=== PATIENT | male | born 1995 | race Caucasian/White ===

== ENCOUNTER 2017-07-18 14:36 | Emergency (ER) | payer BC ==
--- OUTSIDE RECORDS SUMMARY | 2017-07-18 17:05 | XMS REPORT ---
:1995 External Reference #:[id number] Author Organization [facility] Address [address], [address] [place] [address] Phone [phone] Care Team Providers Name Role Phone Terry Carlin PA Care Team Information Esol Instructor Unavailable Terry Carlin PA Primary Care Physician Unavailable Payers Type Date Identification Numbers Payment Provider Subscriber Commercial Effective: Policy Number: [id number] BS [place] Ann Jaimes 2009 PayID: [id number] [address] [address] [place] [address] Problems Date Description Provider Status Onset: 06/30/2017 Ganglion cyst of left wrist Jorge Valladares MD,FACS Active Family History Date Family Member(s) Problem(s) Comments Father Diabetes Social History Type Date Description Comments Occupation Help Desk Assistant ETOH Use Rarely consumes alcohol Smoking Patient denies history of smoking Recreational Drug Use Denies Drug Use Daily Caffeine Does Not Consume Caffeine Allergies, Adverse Reactions, Alerts Date Description Reaction Status Severity Comments 06/29/2017 NKDA active Medications Medication Date Status Form Strength Qnty SIG Indications Ordering Provider No Active 06/29/2017 Active Unknown Medications Vital Signs Date Vital Result Comment 06/30/2017 BP Systolic 120 mmHg BP Diastolic 78 mmHg Height 69 inches 5'9" Weight 244.00 lb BMI (Body Mass Index) 36.0 kg/m2 BSA (Body Surface Area) 2.25 m2 [place] body weight in kilograms 73 Results Description No Information Procedures Date CPT Code Description Status 03/01/2007 75865 Tympanometry Completed 03/01/2007 94322 Audiometry, Comprehensive Completed Encounters Type Date Location Provider CPT E/M Dx Office Visit 03/01/2007 3:30p Operating Room Elias Ramírez M.D. [id number] 382.01 Office Visit 02/08/2007 1:00p Operating Room Elias Ramírez M.D. 46197 382.01 Plan of Care Future Appointment(s):07/02/2017 2:15 pm - [facility]EL[id number]/30/2017 - Jorge Valladares MD,[id number] Ganglion, left wristComments: ganglion cyst of the left wrist, relatively large, 3 cm, located anteriorly in close proximity to the flexor tendons and left radial artery. will refer to orthopedics/hand surgery for treatment. i recommended no heavy lifting in that arm till he is seen.
--- NOTE | 2017-07-18 17:16 | UC ---
Throat Pain/Nasal Howie HPI - HPI Summary HPI Summary: 22 y/o male presents to the urgent care c/o sore throat upon swallowing since yesterday. Pt reports he ate spicy food and after that he developed sore throat. Pain is mild 2/10 radiating on his RT ear at times. Pt denies fever, SERRA , SOB, chest pain, abdominal pain N/V/D. He took Advil 400mg PO last night to alleviate symptoms w/o any relief. - History of Current Complaint Stated Complaint: THROAT COMPLAINT Time Seen by Provider: 07/18/17 17:11 Hx Obtained From: Patient Onset/Duration: Gradual Onset - Allergies/Home Medications Allergies/Adverse Reactions: Allergies Allergy/AdvReac Type Severity Reaction Status Date / Time No Known Allergies Allergy Verified 07/18/17 17:14 Throat Pain/Nasal Course/Dx - Course Course Of Treatment: 22 y/o male presents to the urgent care c/o sore throat upon swallowing since yesterday. Pt reports he ate spicy food and after that he developed sore throat. Pain is mild 2/10 radiating on his RT ear at times. Pt denies fever, SERRA, SOB, chest pain, abdominal pain N/V/D. He took Advil 400mg PO last night to alleviate symptoms w/o any relief. Hx obtained. Pt with Rt otitis media and mild epigastric tenderness on examination. Possible GERD. Pt RX Amoxicillin PO and Omepraxole PO to alleviate symptoms. Educated on dietary modifications. Pt Advised to f/u with PCP for further management.Pt explained D/ C intructions. Pt understood and agreed with plan of care. - Differential Dx/Diagnosis Differential Diagnosis/HQI/PQRI: Laryngitis, Otitis Media, Pharyngitis, Sinusitis, URI, Other - GERD Provider Diagnoses: 1- Acute Rt otitis media. 2-GERD Discharge - Discharge Plan Condition: Stable Disposition: HOME Prescriptions: Amoxicillin PO (*) [Amoxicillin 875 MG (*)] 875 mg PO BID #20 tab Omeprazole CAP* [Prilosec CAP* 20 MG] 20 mg PO DAILY #30 cap. Patient Education Materials: Ear Infection (ED), Gastroesophageal Reflux Disease (ED) Referrals: [facility] [Outside] Elias Ramírez MD [Medical Doctor] - 3 Days Additional Instructions: 1- Please take the full course of the antibiotic to avoid resistance. 2-Please take Omeprazole PO as directed. Avoid spicy foot, tomato sauce or chocolates that can cause GI irritation 3-If symptoms do not improve or worsen please return to the urgent care or f/u with your PCP for further evaluation and treatment. 4- PLease F/u with your ENT Dr Ramírez for further treatment if not improvement of symptoms
[2017-07-18 17:22] VITALS: BP 119/75
== END 2017-07-18 17:45 | disposition home or self-care (01) ==
LOC: UCCORT 14:36
DX: H66.91 Otitis media, unspecified, right ear (principal); K21.9 Gastro-esophageal reflux disease without esophagitis
CPT/HCPCS: 99202; G0463

== ENCOUNTER 2017-11-01 11:07 | Emergency (ER) | payer BC ==
--- NOTE | 2017-11-01 13:05 | UC ---
Ear Complaint HPI - HPI Summary HPI Summary: pain in area of R ear and throat for about 3 days. hx chronic ear infections and this feels the same. subjective fever. - History of Current Complaint Hx Obtained From: Patient Onset/Duration: Gradual Onset Aggravating Factors: Nothing Alleviating Factors: Nothing Associated Signs/Symptoms: Negative: Discharge, Trauma to Ear <Mimi Zepeda - Last Filed: 11/01/17 13:00> <Sarah Breen - Last Filed: 11/01/17 20:24> - History of Current Complaint Stated Complaint: EAR PAIN Time Seen by Provider: 11/01/17 13:00 - Allergies/Home Medications Allergies/Adverse Reactions: Allergies Allergy/AdvReac Type Severity Reaction Status Date / Time No Known Allergies Allergy Verified 07/18/17 17:14 PMH/Surg Hx/FS Hx/Imm Hx - Additional Past Medical History Additional PMH: OM - Surgical History Surgical History: Yes Surgery Procedure, Year, and Place: T&A. EAR TUBE SETS X 5 - Family History Known Family History: Positive: Diabetes - Social History Occupation: Student Alcohol Use: None Substance Use Type: None Smoking Status (MU): Never Smoked Tobacco - Immunization History Vaccination Up to Date: Yes <Mimi Zepeda - Last Filed: 11/01/17 13:00> Review of Systems Constitutional: Negative Skin: Negative Eyes: Negative ENT: Sore Throat, Ear Ache Respiratory: Negative Cardiovascular: Negative Gastrointestinal: Negative Genitourinary: Negative Motor: Negative Neurovascular: Negative Musculoskeletal: Negative Neurological: Negative Psychological: Negative Is Patient Immunocompromised?: No All Other Systems Reviewed And Are Negative: Yes <Mimi Zepeda - Last Filed: 11/01/17 13:00> Physical Exam Triage Information Reviewed: Yes Appearance: Well-Appearing Vital Signs Reviewed: Yes Eyes: Positive: Conjunctiva Clear ENT: Positive: Pharynx normal, TMs normal - L, TM red - R. Negative: Nasal congestion, Nasal drainage Neck: Positive: Supple, Nontender, No Lymphadenopathy Respiratory: Positive: Lungs clear, Normal breath sounds Cardiovascular: Positive: RRR, No Murmur Abdomen Description: Positive: Nontender, No Organomegaly, Soft Bowel Sounds: Positive: Present Musculoskeletal: Positive: ROM Intact Neurological: Positive: Alert Psychological: Positive: Age Appropriate Behavior Skin Exam: Normal <Mimi Zepeda - Last Filed: 11/01/17 13:00> Vital Signs: Initial Vital Signs Temp 98.7 F 11/01/17 13:02 Pulse 78 11/01/17 13:02 Resp 18 11/01/17 13:02 BP 122/78 11/01/17 13:02 Pulse Ox 98 11/01/17 13:02 <Sarah Breen - Last Filed: 11/01/17 20:24> Ear Complaint Course/Dx - Course Course Of Treatment: R OM on exam - Differential Dx/Diagnosis Provider Diagnoses: R OM <Mimi Zepeda - Last Filed: 11/01/17 13:00> Discharge - Sign-Out/Discharge Documenting (check all that apply): Discharge/Admit/Transfer - Billing Disposition and Condition Condition: STABLE Disposition: HOME <Mimi Zepeda - Last Filed: 11/01/17 13:00> - Billing Disposition and Condition Condition: STABLE Disposition: HOME <Sarah Breen - Last Filed: 11/01/17 20:24> - Discharge Plan Condition: Stable Disposition: HOME Prescriptions: Amoxicillin PO (*) [Amoxicillin 875 MG (*)] 875 mg PO BID #20 tab Patient Education Materials: Ear Infection (ED) Referrals: Fernando Guzman MD [Primary Care Provider] - 7 Days Attestation Statement User Type: Provider - I was available for consult. This patient was seen by the PAULINE. The patient was not presented to, seen by, or examined by me. -Oni <Sarah Breen - Last Filed: 11/01/17 20:24>
[2017-11-01 13:11] VITALS: BP 122/78
== END 2017-11-01 13:10 | disposition home or self-care (01) ==
LOC: UCCORT 11:07
DX: H66.91 Otitis media, unspecified, right ear (principal)
CPT/HCPCS: 99212; G0463

== ENCOUNTER 2017-12-21 14:07 | Emergency (ER) | payer BC ==
--- NOTE | 2017-12-21 14:15 | UC ---
Ear Complaint HPI - HPI Summary HPI Summary: 22 yo male presents with left ear pain and drainage for the last 5 days. He tells me that 6 or 7 days [place] the [place] day developed left ear pain and drainage. He tells me that he has a history of chronic ear infections and has had tubes placed multiple times. Today also noticed his left eye was red and itchy. Denies fever, chills, sore throat, cough , or headache. - History of Current Complaint Stated Complaint: LEFT EAR Time Seen by Provider: 12/21/17 14:14 Hx Obtained From: Patient Onset/Duration: Gradual Onset Severity Initially: Mild Severity Currently: Moderate Pain Intensity: 5 Pain Scale Used: 0-10 Numeric - Allergies/Home Medications Allergies/Adverse Reactions: Allergies Allergy/AdvReac Type Severity Reaction Status Date / Time No Known Allergies Allergy Verified 12/21/17 14:18 Home Medications: Home Medications Citalopram TAB* [CeleXA TAB*] 10 mg PO DAILY 12/21/17 [History Confirmed ] traZODone TAB* [Desyrel TAB*] 50 mg PO BEDTIME 12/21/17 [History Confirmed 12/21] PMH/Surg Hx/FS Hx/Imm Hx - Additional Past Medical History Additional PMH: Chronic ear infections GI/ History: Gastroesophageal Reflux Psychological History: Anxiety - Surgical History Surgical History: Yes Surgery Procedure, Year, and Place: T&A. EAR TUBE SETS X 5 - Family History Known Family History: Positive: Diabetes - Social History Occupation: Student Lives: With Family Alcohol Use: None Substance Use Type: None Smoking Status (MU): Never Smoked Tobacco - Immunization History Vaccination Up to Date: Yes Review of Systems Constitutional: Negative Skin: Negative Eyes: Eye Redness ENT: Ear Ache Respiratory: Negative Cardiovascular: Negative Gastrointestinal: Negative Neurological: Negative Psychological: Negative All Other Systems Reviewed And Are Negative: Yes Physical Exam - Summary Physical Exam Summary: GENERAL: NAD. WDWN. No pain distress. SKIN: No rashes, sores, lesions, or open wounds. HEENT: Head: AT/NC Eyes: EOM intact. PERRLA. LEFT EYE: Mild scleral injection. Conjunctiva with mild erythema. No discharge. Right eye: WNL. Ears: Hearing grossly normal. LEFT EAR: Moderate canal edema with white purulent matter. Tragus TTP. Pinna tender with movement. Nose: Nasal mucosa pink and moist. NTTP maxillary and frontal sinus. Throat: Posterior oropharynx without exudates, erythema, or tonsillar enlargement. Uvula midline. NECK: Supple. Nontender. No lymphadenopathy. CHEST: CTAB. No r/r/w. No accessory muscle use. Breathing comfortably and in no distress. CV: RRR. Without m/r/g. Pulses intact. Brisk cap refill. NEURO: Alert. CN II-XII grossly intact. PSYCH: Age appropriate behavior. Triage Information Reviewed: Yes Vital Signs: Vital Signs: Temp Pulse Resp BP Pulse Ox 97.9 F 86 15 124/67 100 12/21/17 14:16 12/21/17 14:16 12/21/17 14:16 12/21/17 14:16 12/21/17 14:16 Ear Complaint Course/Dx - Course Course Of Treatment: Otitis externa left. Conjunctivitis left - Differential Dx/Diagnosis Provider Diagnoses: Otitis externa left. Conjunctivitis left Discharge - Sign-Out/Discharge Documenting (check all that apply): Discharge/Admit/Transfer - Discharge Plan Condition: Stable Disposition: HOME Prescriptions: Ciprofloxacin HCl [Ciprofloxacin 0.2% EAR DROPS] 1 drop LEFT EAR BID #1 bottle Polymyx/Trimethoprim OPTH* [Polytrim OPHTH*] 1 drop LEFT EYE QID #1 btl Patient Education Materials: Otitis Externa (ED) Referrals: Fernando Guzman MD [Primary Care Provider] - Additional Instructions: If you develop a fever, shortness of breath, chest pain, new or worsening symptoms - please call your PCP or go to the ED. - Billing Disposition and Condition Condition: STABLE Disposition: Home
[2017-12-21 14:21] VITALS: BP 124/67
== END 2017-12-21 14:33 | disposition home or self-care (01) ==
LOC: UCCORT 14:07
DX: H60.92 Unspecified otitis externa, left ear (principal); H10.9 Unspecified conjunctivitis; F41.9 Anxiety disorder, unspecified
CPT/HCPCS: 99212; G0463

== ENCOUNTER 2019-05-08 21:53 | Emergency (ER) | payer BC ==
[2019-05-08 22:02] VITALS: BP 124/88
--- NOTE | 2019-05-08 22:11 | UC ---
Throat Pain/Nasal Howie HPI - HPI Summary HPI Summary: C/O 20 minutes of throat pain 2/10 with swelling lower in the throat, but no difficulty swallowing. Recent URI symptoms with congestion and cough. C/O right ear pain as well. Has environmental allergies. - History of Current Complaint Chief Complaint: UCGeneralIllness Stated Complaint: THROAT COMPLAINT Time Seen by Provider: 05/08/19 22:06 Hx Obtained From: Patient Onset/Duration: Sudden Onset, Lasting Minutes - 20 Severity: Mild Pain Intensity: 2 Associated Signs & Symptoms: Positive: FB Sensation, Nasal Discharge. Negative : Dysphagia Related History: Seasonal Allergies - Allergies/Home Medications Allergies/Adverse Reactions: Allergies Allergy/AdvReac Type Severity Reaction Status Date / Time No Known Allergies Allergy Verified 05/08/19 22:02 Home Medications: Home Medications Bupropion XL* [Wellbutrin XL *] 300 mg PO DAILY 05/08/19 [History Confirmed ] Ibuprofen TAB* [Advil TAB*] 800 mg PO ONCE 05/08/19 [History Confirmed 05/08/19] PARoxetine HCL TAB* [Paxil TAB*] 30 mg PO DAILY 05/08/19 [History Confirmed ] PMH/Surg Hx/FS Hx/Imm Hx Previously Healthy: Yes - Surgical History Surgical History: Yes Surgery Procedure, Year, and Place: T&A. EAR TUBE SETS X 5 - Family History Known Family History: Positive: Diabetes - Social History Occupation: Employed Full-time Lives: With Family Alcohol Use: None Substance Use Type: Marijuana Substance Use Comment - Amount & Last Used: few times a day Smoking Status (MU): Never Smoked Tobacco - Immunization History Vaccination Up to Date: Yes Review of Systems All Other Systems Reviewed And Are Negative: Yes Constitutional: Positive: Fatigue ENT: Positive: Sore Throat, Ear Ache, Nasal Discharge Respiratory: Positive: Cough Physical Exam Triage Information Reviewed: Yes Appearance: No Pain Distress, Ill-Appearing - mild, Obese Vital Signs: Initial Vital Signs Temp 96.5 F 05/08/19 21:55 Pulse 119 05/08/19 21:55 Resp 18 05/08/19 21:55 BP 124/88 05/08/19 21:55 Pulse Ox 98 05/08/19 21:55 Vital Signs Reviewed: Yes Eyes: Positive: Conjunctiva Clear ENT: Positive: Pharynx normal - posterior lymphoid hyperplasia, Nasal congestion - with allergic changes., TMs normal - , TM bulging - AD, TM dull - AD, TM red - AD. Negative: Tonsillar swelling, Tonsillar exudate, Trismus, Muffled voice Diagnostics - Radiology No standard instances Radiology Interpretation Completed By: ED Physician Summary of Radiographic Findings: Normal epiglottis Throat Pain/Nasal Course/Dx - Differential Dx/Diagnosis Differential Diagnosis/HQI/PQRI: Epiglottitis, Otitis Media, Pharyngitis, Tonsillitis, URI Provider Diagnosis: Acute viral pharyngitis, Allergic rhinitis, Otitis media, right Discharge ED - Sign-Out/Discharge Documenting (check all that apply): Patient Departure All imaging exams completed and their final reports reviewed: No Studies - Discharge Plan Condition: Stable Disposition: HOME Prescriptions: Amoxicillin/Clavulanate TAB* [Augmentin TAB 875*] 875 mg PO BID #20 tab Fluticasone NASAL SPRAY 50MCG* [Flonase NASAL SPRAY 50MCG*] 2 spray BOTH NARES DAILY #1 btl Patient Education Materials: Pharyngitis (ED), Ear Infection (ED), Allergic Rhinitis (ED) Referrals: Nilsa Knott [Primary Care Provider] - 2 Weeks (recheck allergies/ ear infection) Additional Instructions: NEILMED SINUS RINSE: CHECK OUT AT [facility] Saline nasal wash helps with mucous, allergies and congestion. It can be used up to twice a day or only as needed. Use lukewarm tap water. It does not have to be sterilized or distilled water. Do 1/3 on each side and snort out of both nostrils. Repeat the process with 1/6 of the bottle on each side with snorting in between to finish the solution in the bottle Do the fluticasone nasal spray 30-45 minutes after doing the sinus rinse. Tilt the head down, "nose to toes" while doing the spray. - Billing Disposition and Condition Condition: STABLE Disposition: Home
[2019-05-08] MEDS ORDERED: Amoxicillin/Clavulanate TAB* 875 MG PO ONE (22:15)
== END 2019-05-08 22:24 | disposition home or self-care (01) ==
LOC: UCCORT 21:53
DX: J02.8 Acute pharyngitis due to other specified organisms (principal); J30.89 Other allergic rhinitis; H66.91 Otitis media, unspecified, right ear; R53.83 Other fatigue
CPT/HCPCS: 70360; 99212; A9270-GY; G0463